=== PATIENT | male | born 2000 | race Caucasian/White ===

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

== ENCOUNTER 2020-04-05 10:56 | Emergency (ER) | payer SELFPAY ==
--- NOTE | 2020-04-05 11:50 | EDM.PDOC ---
ED HPI GENERAL MEDICAL PROBLEM - General Stated Complaint: LACERATION ON RIGHT WRIST Time Seen by Provider: 04/05/20 11:30 Source of Information: Reports: Patient, RN, RN Notes Reviewed History Limitations: Reports: No Limitations - History of Present Illness INITIAL COMMENTS - FREE TEXT/NARRATIVE: Patient presents to ER with complaint of laceration to the right ventral wrist. Patient states yesterday approximately 4:30 PM he fell and tried to catch himself, putting his hand through his reptile cage which was glass. Patient states his father wanted him to get it checked out for work purposes. Patient states he believes he is up-to-date on his tetanus vaccination, but will check with his parents. Onset: Sudden Onset Date: 04/04/20 Right Wrist Pain Score (Numeric/FACES): 7 - Related Data Allergies Allergy/AdvReac Type Severity Reaction Status Date / Time No Known Allergies Allergy Verified 04/05/20 12:36 Home Meds: Home Meds . [No Known Home Meds] 04/05/20 [History] Past Medical History Respiratory History: Reports: Asthma ED ROS GENERAL - Review of Systems Review Of Systems: Comprehensive ROS is negative, except as noted in HPI. ED EXAM, SKIN/RASH Exam: See Below Exam Limited By: No Limitations General Appearance: Alert, WD/WN, No Apparent Distress Eye Exam: Bilateral Eye: EOMI, Normal Inspection Ears: Normal External Exam, Hearing Grossly Normal Nose: Normal Inspection Throat/Mouth: Normal Inspection, Normal Voice, No Airway Compromise Head: Atraumatic, Normocephalic Neck: Normal Inspection, Supple, Non-Tender, Full Range of Motion Respiratory/Chest: No Respiratory Distress, Lungs Clear, Normal Breath Sounds, No Accessory Muscle Use, Chest Non-Tender Cardiovascular: Normal Peripheral Pulses, Regular Rate, Rhythm, No Edema, No Gallop, No JVD, No Murmur, No Rub Peripheral Pulses: 2+: Radial (L), Radial (R) GI/Abdominal: Normal Bowel Sounds, Soft, Non-Tender (Male) Exam: Deferred Rectal (Males) Exam: Deferred Back Exam: Normal Inspection, Full Range of Motion, NT Extremities: Normal Inspection, Normal Range of Motion, Non-Tender, No Pedal Edema, Normal Capillary Refill Neurological: Alert, Oriented, CN II-XII Intact, Normal Cognition, Normal Gait, Normal Reflexes, No Motor/Sensory Deficits Psychiatric: Normal Affect, Normal Mood Skin: Warm, Dry, Normal Color, No Rash, Other (2.5 cm laceration to the ventral right wrist, subcutaneous in places, superficial and places) Location, Skin: Upper Extremity, Right Lymphatic: No Adenopathy Course - Vital Signs Last Recorded V/S: Last Vital Signs Temp 98.7 F 04/05/20 11:30 Pulse 66 04/05/20 11:30 Resp 16 04/05/20 11:30 BP 130/87 04/05/20 11:30 Pulse Ox 100 04/05/20 11:30 - Re-Assessments/Exams Free Text/Narrative Re-Assessment/Exam: 04/05/20 14:44 No sutures placed as incident occurred approximately 19 hours ago. Steri-Strips were placed over the wound, and Coban placed over it. Patient instructed to try to keep the area clean dry and intact. Explained to patient that we would be starting him on antibiotics since the wound had been open for so long. Patient agreed with treatment plan. Departure - Departure Time of Disposition: 11:49 Disposition: Home, Self-Care 01 Condition: Good Clinical Impression: Laceration - Discharge Information *PRESCRIPTION DRUG MONITORING PROGRAM REVIEWED*: No *COPY OF PRESCRIPTION DRUG MONITORING REPORT IN PATIENT NEELA: No Instructions: Laceration Care, Adult, [id number], Probiotics Referrals: PCP,None [Primary Care Provider] - Forms: ED Department Discharge Additional Instructions: Keep Steri-Strips in place, let them fall off on their own, do not pull them off Keep area clean and dry Rx: Cephalexin as directed Follow-up with your primary care provider if any worsening of symptoms Check on tetanus status, if not up-to-date follow-up in the clinic or public health for that vaccination. Sepsis Event Note (ED) - Focused Exam Vital Signs: Vital Signs Temp Pulse Resp BP Pulse Ox 04/05/20 11:30 98.7 F 66 16 130/87 100
== END 2020-04-05 12:00 | disposition home or self-care (01) ==
LOC: VM.ED 10:56
DX: S61.511A Laceration without foreign body of right wrist, initial encounter (principal); J45.909 Unspecified asthma, uncomplicated; W25.XXXA Contact with sharp glass, initial encounter
CPT/HCPCS: 99282; 99283